=== PATIENT | female | born 1980 | race Caucasian/White ===

== ENCOUNTER 2021-11-07 21:03 | Emergency (ER) | payer SELFPAY ==
[~2021-11-07] VITALS: Ht 167.6 cm; Wt 59.0 kg
--- NOTE | 2021-11-07 21:05 | NUR ---
BIBA TAKEN TO BED #3
[2021-11-07 21:15] VITALS: BP 107/70
--- NOTE | 2021-11-07 21:29 | NUR ---
ASSUMED AGE OF 41 Y/O FEMALE BIBA FROM IN FRONT OF A LOCAL SMOKE SHOP, C/O ALOC/DRUG USE. DIRECTOR PROCESS OF THE SMOKE SHOP SAW PT LAYING ON THE GROUND IN FRONT OF HIS SMOKE SHOP AND CALLED EMS. PER EMS PT HAD A "CRACK/METH PIPE" IN HAND. PT IS NOT FOLLOWING COMMANDS AND IS UNCOOPERATIVE WITH QUESTIONING. UNABLE TO OBTAIN NAME, DEMOGRAPHICS, COMPLAINT, OR PT HISTORY. PER EMS PT IS TRANSIENT, HAS NO SHOES AND DIRTY CLOTHING, PT IS UNKEMPT. PT WILL NOT ANSWER A/O QUESTIONS, [facility]-12 (E:3, V:4, M:5). UNLABORED BREATHING. SEATED IN BED W/ HOB RAISED AND BED IN LOWEST SETTING, RAIL UP X2. PMH, RX, OR ALLERGIES UNKNOWN
--- NOTE | 2021-11-08 01:19 | NUR ---
PT IS RESTING COMFORTABLY IN BED. PT HAS BLANKETS AND WATER AT BEDSIDE. PT STILL UNABLE TO ANSWER QUESTIONS APPROPRIATELY.
--- NOTE | 2021-11-08 02:01 | NUR ---
PT HAS C/O NAUSEA AND HEADACHE. DR. HUIZAR MADE AWARE.
[2021-11-08] MEDS: IBUPROFEN 800 MG TAB PO ONE (02:15)
[2021-11-08] MEDS: ONDANSETRON 4 MG TAB PO ONE (02:16)
[2021-11-08] MEDS: diphenhydrAMINE 50 MG/ML VIAL IM ONE ×2 (02:22→05:14)
[2021-11-08] MEDS: LORazepam 2 MG/ML VIAL IM ONE ×2 (02:22→05:14)
[2021-11-08] MEDS ORDERED: HALOPERIDOL IM 5 MG/ML VIAL ONE (05:08)
[2021-11-08] MEDS: HALOPERIDOL IM 5 MG/ML VIAL IM ONE (05:12)
--- NOTE | 2021-11-08 05:14 | NUR ---
PT PERIODICALLY CRIES OUT UNINTELIGIBLE WORDS. WHEN CHECKING ON THE PT SHE PRETENDS TO BE SLEEPING. PT RESISTS HELP AND YELLS WHEN PUTTING HER CLOTHES BACK ON.
--- NOTE | 2021-11-08 05:50 | NUR ---
PT WAS ROAD TESTED AND PASSED, GIVEN SHOES, A/OX4, GIVEN FOOD/HOMELESS PACKET AND REFUSED; ASKED PT WHERE SHE WAS GOING PT CONTINUED TO WALK OUT THE DOOR WITHOUT RESPONDING. PT HAD APPROPRIATE CLOTHING.
--- NOTE | 2021-11-08 05:53 | NUR ---
Note lena in [facility] - 11/08/21 at 0555 by [email or web address] PT WAS ROAD TESTED AND PASSED, GIVEN SHOES, A/OX4, GIVEN FOOD/HOMELESS PACKET AND REFUSED; ASKED PT WHERE SHE WAS GOING PT CONTINUED TO WALK OUT THE DOOR WITHOUT RESPONDING. PT HAD APPROPRIATE CLOTHING.
[2021-11-08 05:55] VITALS: BP 132/102
== END 2021-11-08 05:55 | disposition home or self-care (01) ==
LOC: MED 21:03
DX: G93.40 Encephalopathy, unspecified (principal)
CPT/HCPCS: 96372; 99285; J1200; J2060; Q0162; J1630